=== PATIENT | male | born 1985 | race Caucasian/White ===

== ENCOUNTER 2017-12-01 07:12 | Emergency (ER) | payer MEDICAID, OTHER ==
[~2017-12-01] VITALS: Ht 172.7 cm; Wt 104.3 kg
[2017-12-01] MEDS ORDERED: SILVER SULFADIAZINE 1 % TOPICAL CREAM 50GM TOP ONE (08:00)
[2017-12-01] MEDS ORDERED: methylPREDNISolone SOD SUCC 125 MG/2 ML VL IM ONE (08:30)
[2017-12-01] MEDS ORDERED: diphenhdrAMINE HCL 25 MG CAP PO ONE (08:30)
== END 2017-12-01 09:46 | disposition home or self-care (01) ==
LOC: ER 07:17
DX: T21.14XA Burn of first degree of lower back, initial encounter (principal); Z88.1 Allergy status to other antibiotic agents; X08.8XXA Exposure to other specified smoke, fire and flames, initial encounter; Y93.89 Activity, other specified; Y92.89 Other specified places as the place of occurrence of the external cause; Y99.8 Other external cause status
CPT/HCPCS: 96372; 99283; J2930

== ENCOUNTER 2017-12-01 12:35 | Emergency (ER) | payer OTHER ==
[~2017-12-01] VITALS: Ht 172.7 cm; Wt 104.3 kg
[2017-12-01 13:15] VITALS: BP 142/77
[2017-12-01] MEDS ORDERED: diphenhdrAMINE HCL 50 MG/1 ML VL IM ONE (19:45)
[2017-12-01] MEDS ORDERED: FAMOTIDINE 20 MG TAB PO ONE (19:45)
[2017-12-01] MEDS ORDERED: DEXAMETHASONE SOD PHOS 10MG/1ML VIAL INJ IM ONE (19:45)
== END 2017-12-01 20:33 | disposition short-term general hospital (02) ==
LOC: ER 12:35
DX: T78.40XA Allergy, unspecified, initial encounter (principal); Z88.1 Allergy status to other antibiotic agents; X58.XXXA Exposure to other specified factors, initial encounter
CPT/HCPCS: 96372; 99284; J1100; J1200